=== PATIENT | female | born 1990 | race Caucasian/White ===

== ENCOUNTER 2019-10-26 22:41 | Emergency (ER) | payer MEDICAID ==
[~2019-10-26] VITALS: Ht 172.7 cm; Wt 79.8 kg
[2019-10-26 22:51] VITALS: BP_SYST 163
--- NOTE | 2019-10-26 23:00 | NUR ---
Patient to ER bed 04 to gown for evaluation. Side rails up.
--- NOTE | 2019-10-26 23:10 | NUR ---
ER at bedside examining patient.
--- NOTE | 2019-10-26 23:12 | NUR ---
Pt presents to the ER c/o L axillary cyst x 1 year. Pt reports cyst became painful and she ruptured cyst. White/yellow like d/c from site. No current discharge, pain increases when touched. Denies fever, sob, chills or CP.
--- NOTE | 2019-10-27 00:09 | NUR ---
Patient given written and verbal discharge instructions and verbalizes understanding. ER MD discussed with patient the results and treatment provided. Patient in stable condition. ID arm band removed. . Opportunity for questions provided and answered. Medication side effect fact sheet provided.
[2019-10-27 00:10] VITALS: BP_SYST 163
== END 2019-10-27 00:10 | disposition home or self-care (01) ==
LOC: SED 22:41
DX: N63.32 Unspecified lump in axillary tail of the left breast (principal); I10 Essential (primary) hypertension
CPT/HCPCS: 99281